=== PATIENT | male | born 1975 | race African-American/Black ===

== ENCOUNTER 2022-09-12 10:26 | Inpatient (IN) | payer OTHER ==
[~2022-09-12] VITALS: Ht 180.3 cm; Wt 88.7 kg
[2022-09-12] MEDS ORDERED: ONDANSETRON 4MG 2ML VIAL As Ordered ONE (12:11)
[2022-09-12] MEDS ORDERED: MORPHINE 4 MG/ML 1ML VIAL As Ordered ONE (12:11)
[2022-09-12] MEDS ORDERED: ONDANSETRON 4MG 2ML VIAL IV ONE (12:20)
[2022-09-12] MEDS ORDERED: MORPHINE 4 MG/ML 1ML VIAL IV ONE ×2 (12:20→13:15)
[2022-09-12 12:52] LABS: BASO % 0.1 % (0.0-1.0); EOS % 0.1 % (0.0-3.0); HEMOGLOBIN 15.5 g/dl (13.5-17.5); LYMPH # 1.2 10^3/uL (1.5-5.0); LYMPH % 8.9 % (24.0-44.0); MEAN CORPUSCULAR HEMOGLOBIN 29.1 pg (27.0-33.0); MEAN CORPUSCULAR VOLUME 88.2 fl (80.0-96.0); MONO # 0.6 10^3/uL (0.0-0.8); MONO % 4.3 % (2.0-8.0); NEUTROPHILS # 11.7 10^3/uL (1.5-8.5); NEUTROPHILS % 86.2 % (36.0-66.0); PLATELET COUNT, AUTOMATED 289 10^3/uL (150-450); RED BLOOD COUNT 5.33 10^6/uL (4.30-6.10); WHITE BLOOD COUNT 13.6 10^3/uL (4.0-10.0)
[2022-09-12 13:18] LABS: BLOOD UREA NITROGEN 14 MG/DL (9-23); CALCIUM LEVEL 9.2 MG/DL (8.5-10.1); CARBON DIOXIDE LEVEL 26 MMOL/L (20-31); CHLORIDE LEVEL 105 MMOL/L (98-107); CREATININE FOR GFR 1.41 MG/DL (0.70-1.30); GLOMERULAR FILTRATION RATE > 60.0 (>60); GLUCOSE, FASTING 126 MG/DL (60-100); POTASSIUM SERUM 3.8 MMOL/L (3.5-5.1); SODIUM LEVEL 139 MMOL/L (136-145)
[2022-09-12 13:28] LABS: RSV AMPLIFICATION NEGATIVE (NEGATIVE)
[2022-09-12] MEDS ORDERED: MOM 30ML SUSPENSION UDC PO PRN (13:35)
[2022-09-12] MEDS ORDERED: MAALOX 30 ML SUSP *UDC PO PRN (13:35)
[2022-09-12] MEDS ORDERED: ACETAMINOPHEN TAB 650MG DOSE (2X325MG) PO PRN (13:35)
[2022-09-12] MEDS: NS 1,000 ML IV SCH (13:49)
[2022-09-12 14:45] LABS: INR 0.98; PROTHROMBIN TIME 13.2 SECONDS (12.5-14.5)
[2022-09-12 15:01] LABS: ALBUMIN 3.9 G/DL (3.2-5.2); BILIRUBIN,DIRECT 0.1 MG/DL (<0.4); BILIRUBIN,TOTAL 0.4 MG/DL (0.3-1.2); TOTAL PROTEIN 7.2 G/DL (5.7-8.2)
[2022-09-12] MEDS ORDERED: DILT240C83 PO (15:52)
[2022-09-12] MEDS ORDERED: LOSA100T45 PO (15:52)
[2022-09-12] MEDS ORDERED: HOME MED LIST COMPLETE! XX SCH (15:55)
[2022-09-12] MEDS: DOCUSATE SODIUM 100MG CAPSULE PO SCH (21:00)
[2022-09-12 22:30] VITALS: BP 128/75
[2022-09-13] VITALS: BP 121/79
[2022-09-13] MEDS: NS 1,000 ML IV SCH ×2 (00:18→13:58)
[2022-09-13] MEDS: MORPHINE 2 MG/ML 1ML VIAL IV PRN ×3 (00:19→13:58)
[2022-09-13 02:00] VITALS: BP 134/73
[2022-09-13 04:00] VITALS: BP 143/80
[2022-09-13 05:55] LABS: BASO % 0.1 % (0.0-1.0); EOS % 0.3 % (0.0-3.0); HEMATOCRIT 40.7 % (42.0-52.0); LYMPH # 1.8 10^3/uL (1.5-5.0); LYMPH % 18.5 % (24.0-44.0); MEAN CORPUSCULAR HEMOGLOBIN 29.5 pg (27.0-33.0); MEAN CORPUSCULAR HGB CONC 33.2 g/dl (32.0-36.5); MEAN CORPUSCULAR VOLUME 88.9 fl (80.0-96.0); MONO # 0.9 10^3/uL (0.0-0.8); MONO % 9.2 % (2.0-8.0); NEUTROPHILS # 6.9 10^3/uL (1.5-8.5); NEUTROPHILS % 71.6 % (36.0-66.0); PLATELET COUNT, AUTOMATED 263 10^3/uL (150-450); RED BLOOD COUNT 4.58 10^6/uL (4.30-6.10); WHITE BLOOD COUNT 9.6 10^3/uL (4.0-10.0)
[2022-09-13 05:57] LABS: HEMOGLOBIN 13.5 g/dl (13.5-17.5)
[2022-09-13 06:00] VITALS: BP 139/76
[2022-09-13 06:17] LABS: MAGNESIUM LEVEL 1.7 MG/DL (1.8-2.4)
[2022-09-13 06:19] LABS: BLOOD UREA NITROGEN 14 MG/DL (9-23); CALCIUM LEVEL 8.6 MG/DL (8.5-10.1); CARBON DIOXIDE LEVEL 26 MMOL/L (20-31); CHLORIDE LEVEL 106 MMOL/L (98-107); CREATININE FOR GFR 1.33 MG/DL (0.70-1.30); GLOMERULAR FILTRATION RATE > 60.0 (>60); GLUCOSE, FASTING 92 MG/DL (60-100); POTASSIUM SERUM 3.9 MMOL/L (3.5-5.1); SODIUM LEVEL 141 MMOL/L (136-145)
[2022-09-13 07:41] VITALS: BP 140/88
[2022-09-13] MEDS ORDERED: MAG SULF 1GM/100ML (MAG RUN) 1 GM in IV 1 EA IV ONE (08:00)
[2022-09-13] MEDS: DOCUSATE SODIUM 100MG CAPSULE PO SCH ×2 (09:00→21:00)
[2022-09-13 14:50] LABS: APPEARANCE, URINE MANUAL CLEAR (CLEAR); BILIRUBIN, URINE MANUAL NEGATIVE (NEGATIVE); BLOOD URINE MANUAL NEGATIVE (NEGATIVE); COLOR, URINE MANUAL LT YELLOW (YELLOW); GLUCOSE, URINE (UA) MANUAL NEGATIVE (NEGATIVE); KETONE, URINE MANUAL NEGATIVE (NEGATIVE); LEUKOCYTE ESTERASE, URINE MAN NEGATIVE (NEGATIVE); NITRITE, URINE MANUAL NEGATIVE (NEGATIVE); PROTEIN, URINE MANUAL NEGATIVE (NEGATIVE); UROBILINOGEN, URINE MANUAL NORMAL (NORMAL)
[2022-09-13] MEDS ORDERED: BUPIVACAINE/EPIN 0.25% 30ML VIAL As Ordered ONE (14:52)
[2022-09-13] MEDS ORDERED: ceFAZolin 1GM VIAL As Ordered ONE (14:52)
[2022-09-13 16:02] VITALS: BP 147/88
[2022-09-13] MEDS ORDERED: LIDOCAINE 1% SDV 5ML VIAL PN ONE (17:30)
[2022-09-13] MEDS ORDERED: ROPIvacaine 0.5% 30ML VIAL PN ONE (17:30)
[2022-09-13] MEDS: fentaNYL 100 MCG/2 ML INJECTION IV PRN ×2 (18:03→18:11)
[2022-09-13] MEDS: MIDAZOLAM INJ 2MG/2ML VIAL IV PRN ×2 (18:03→18:11)
[2022-09-13] MEDS ORDERED: TRANEXAMIC ACID 100 MG/ML 10ML VIAL As Ordered ONE (18:40)
[2022-09-13] MEDS ORDERED: propofoL 500 MG/50 ML VIAL As Ordered ONE (18:53)
[2022-09-13] MEDS ORDERED: LIDOCAINE 2% 100MG/5ML SDV (FOR ANES.) As Ordered ONE (18:53)
[2022-09-13] MEDS ORDERED: fentaNYL 100 MCG/2 ML INJECTION As Ordered ONE (18:53)
[2022-09-13] MEDS ORDERED: MIDAZOLAM INJ 2MG/2ML VIAL As Ordered ONE (18:53)
[2022-09-13] MEDS ORDERED: ceFAZolin 2 GM/D5W 50 ML IV BAG As Ordered ONE (19:04)
[2022-09-13] MEDS ORDERED: propofoL 200 MG/20 ML VIAL As Ordered ONE (20:58)
[2022-09-13] MEDS ORDERED: MORPHINE 2 MG/ML 1ML VIAL IV PRN (21:35)
[2022-09-13] MEDS ORDERED: PERCOCET 5MG/325MG TAB PO PRN (21:35)
[2022-09-13] MEDS ORDERED: ONDANSETRON 4MG 2ML VIAL IV PRN (21:35)
[2022-09-13] MEDS ORDERED: MORPHINE 4 MG/ML 1ML VIAL IV PRN (21:35)
[2022-09-13] MEDS ORDERED: ACETAMINOPHEN TAB 650MG DOSE (2X325MG) PO PRN (21:35)
[2022-09-14] MEDS: ceFAZolin SOD 2 GM in IV 1 EA IV SCH ×3 (04:13→18:13)
[2022-09-14] MEDS: PERCOCET 5MG/325MG TAB PO PRN ×3 (04:14→18:12)
[2022-09-14] MEDS: NS 1,000 ML IV SCH ×2 (04:17→20:15)
[2022-09-14 05:17] LABS: BASO % 0.1 % (0.0-1.0); HEMATOCRIT 40.1 % (42.0-52.0); HEMOGLOBIN 13.4 g/dl (13.5-17.5); LYMPH # 0.6 10^3/uL (1.5-5.0); LYMPH % 4.3 % (24.0-44.0); MEAN CORPUSCULAR HGB CONC 33.4 g/dl (32.0-36.5); MEAN CORPUSCULAR VOLUME 86.8 fl (80.0-96.0); MONO # 0.4 10^3/uL (0.0-0.8); MONO % 3.3 % (2.0-8.0); NEUTROPHILS # 12.2 10^3/uL (1.5-8.5); NEUTROPHILS % 91.8 % (36.0-66.0); PLATELET COUNT, AUTOMATED 247 10^3/uL (150-450); RED BLOOD COUNT 4.62 10^6/uL (4.30-6.10); WHITE BLOOD COUNT 13.2 10^3/uL (4.0-10.0)
[2022-09-14 05:31] VITALS: BP 141/90
[2022-09-14 05:43] LABS: MAGNESIUM LEVEL 1.8 MG/DL (1.8-2.4)
[2022-09-14 05:44] LABS: BLOOD UREA NITROGEN 14 MG/DL (9-23); CALCIUM LEVEL 8.3 MG/DL (8.5-10.1); CARBON DIOXIDE LEVEL 23 MMOL/L (20-31); CHLORIDE LEVEL 100 MMOL/L (98-107); CREATININE FOR GFR 1.06 MG/DL (0.70-1.30); GLOMERULAR FILTRATION RATE > 60.0 (>60); GLUCOSE, FASTING 149 MG/DL (60-100); POTASSIUM SERUM 4.1 MMOL/L (3.5-5.1); SODIUM LEVEL 133 MMOL/L (136-145)
[2022-09-14] MEDS: DOCUSATE SODIUM 100MG CAPSULE PO SCH ×2 (10:01→20:15)
[2022-09-14] MEDS: ASPIRIN 81MG ENTERIC TABLET PO SCH ×2 (10:02→20:15)
[2022-09-14] MEDS ORDERED: ASPI81TAEC PO (17:59)
[2022-09-14 19:43] VITALS: BP 146/85
[2022-09-15] MEDS: ceFAZolin SOD 2 GM in IV 1 EA IV SCH (02:01)
[2022-09-15 04:01] VITALS: BP 125/78
[2022-09-15 05:18] LABS: HEMATOCRIT 33.4 % (42.0-52.0); HEMOGLOBIN 11.3 g/dl (13.5-17.5); MEAN CORPUSCULAR HEMOGLOBIN 29.5 pg (27.0-33.0); MEAN CORPUSCULAR HGB CONC 33.8 g/dl (32.0-36.5); MEAN CORPUSCULAR VOLUME 87.2 fl (80.0-96.0); PLATELET COUNT, AUTOMATED 239 10^3/uL (150-450); RED BLOOD COUNT 3.83 10^6/uL (4.30-6.10); WHITE BLOOD COUNT 18.4 10^3/uL (4.0-10.0)
[2022-09-15 05:36] LABS: MAGNESIUM LEVEL 1.9 MG/DL (1.8-2.4)
[2022-09-15 05:37] LABS: BLOOD UREA NITROGEN 18 MG/DL (9-23); CALCIUM LEVEL 8.3 MG/DL (8.5-10.1); CARBON DIOXIDE LEVEL 26 MMOL/L (20-31); CHLORIDE LEVEL 107 MMOL/L (98-107); CREATININE FOR GFR 1.09 MG/DL (0.70-1.30); GLOMERULAR FILTRATION RATE > 60.0 (>60); GLUCOSE, FASTING 131 MG/DL (60-100); POTASSIUM SERUM 4.4 MMOL/L (3.5-5.1); SODIUM LEVEL 139 MMOL/L (136-145)
[2022-09-15 08:00] VITALS: BP 134/84
[2022-09-15] MEDS ORDERED: ASPI81TAEC PO ×2 (09:06→11:00)
[2022-09-15] MEDS ORDERED: PERCOCET PO ×2 (09:06→10:18)
[2022-09-15 09:14] VITALS: BP 134/84
[2022-09-15] MEDS: DOCUSATE SODIUM 100MG CAPSULE PO SCH (09:14)
[2022-09-15] MEDS: ASPIRIN 81MG ENTERIC TABLET PO SCH (09:14)
[2022-09-15] MEDS: NS 1,000 ML IV SCH (09:15)
== END 2022-09-15 11:11 | disposition home or self-care (01) | DRG 313 ==
LOC: M ED 10:26 → M ED INP 13:34 → ENRESERV 21:39 → M PCU 22:33
PROVIDERS: ADMIT Internal Medicine; ATTEND Internal Medicine
PROC: 0QSJ04Z Reposition Right Fibula with Internal Fixation Device, Open Approach (ICD-10-PCS; 2022-09-13)
PROC: 0QSG06Z Reposition Right Tibia with Intramedullary Internal Fixation Device, Open Approach (ICD-10-PCS; principal; 2022-09-13 13:00)
DX: S82.251A Displaced comminuted fracture of shaft of right tibia, initial encounter for closed fracture (principal); N17.9 Acute kidney failure, unspecified; B19.10 Unspecified viral hepatitis B without hepatic coma; W00.0XXA Fall on same level due to ice and snow, initial encounter; Y92.9 Unspecified place or not applicable; I10 Essential (primary) hypertension; Z20.822 Contact with and (suspected) exposure to COVID-19; Z79.899 Other long term (current) drug therapy; S82.451A Displaced comminuted fracture of shaft of right fibula, initial encounter for closed fracture

== ENCOUNTER → 2022-10-21 | Outpatient (CLI) | payer OTHER ==
[~2022-10-21] MED LIST: ASPI81TAEC PO; DILT240C83 PO; LOSA100T45 PO; PERCOCET PO
== END ==
LOC: M SOG 08:07
PROVIDERS: ATTEND Orthopaedic Surgery
DX: S82.231D Displaced oblique fracture of shaft of right tibia, subsequent encounter for closed fracture with routine healing (principal); S82.831D Other fracture of upper and lower end of right fibula, subsequent encounter for closed fracture with routine healing; W18.30XD Fall on same level, unspecified, subsequent encounter; Y92.009 Unspecified place in unspecified non-institutional (private) residence as the place of occurrence of the external cause